=== PATIENT | male | born 1980 | race Caucasian/White ===

== ENCOUNTER 2016-10-12 12:09 | Inpatient (IN) | payer BC, OTHER ==
[~2016-10-12] VITALS: Ht 190.5 cm; Wt 97.5 kg
--- NOTE | 2016-10-12 12:25 | NUR ---
PRE-ASSESSMENT: Pre-Assessment done at intake office, client is A/O x4, he presents with flat affect, anxious mood. Enlarged pupils noted. T 98, RR 18, BP 129/72, HR 87, spO2 @ 98% on RA, Pain generalized body aches 0/10. He is fully ambulatory. He denies any allergies; he denies any withdrawal-induced seizure. PMH: Depression, Asthma and tobacco use. Medications taken at home Wellbutrin 150 daily PO Albuterol 1-2 puffs PRN Q4hr for asthma, last time used yesterday Client substance use is as follow, he first started using heroin about 11 years ago, for the last 4 weeks he has been using 0.5 to 0.75 gram smoked daily, last time used 10/11/16 @ 1900. Methamphetamine 0.33 gm smoked 2-3 times a week, last used 10/11/16 @ 1900. He smokes marijuana occasionally "A couple of hits." Client verbalized understanding of Vitals protocol Q4H, urine drug screen and blood lab work.
[2016-10-12 13:05] VITALS: BP 118/70
--- NOTE | 2016-10-12 13:05 | NUR ---
Admissions Note 36 year old male admitted to [facility] for withdrawal from heroin. Client reports PMH of Asthma, Depression, Chronic tobacco use. Client denies any hx of withdrawal-induced seizure. Client is oriented to unit, educated about protocols and how to work TV and call light in his room. Weight: 215 pounds. Height: 6'3" COWS: 4 Client presents with anxious mood, flat affect, clammy skin, well healed small track arredondo on bilateral arms. well healed scars on Bilateral randall, scabs x 2 on L randall, client states "I was picking at it." Bilateral lung clear of wheezing on auscultation, abdomen soft, non-tender, no edema noted. Clients voice is soft, he avoids eye contact. Client has NKA. Kosher diet ordered. Full code status ordered. LBM was 10/12/16, small/brown/formed. Client denies a PCP. He gives verbal consent for PNA vaccine. He gives verbal consent for HIV. Client states that he was statying at a sober living, but after today he doesn't know where he will be living. Client substance use is as follow, he first started using heroin about 11 years ago, for the last 4 weeks he has been using 0.5 to 0.75 gram smoked daily, last time used 10/11/16 @ 1900. Methamphetamine 0.33 gm smoked 2-3 times a week, last used 10/11/16 @ 1900. He smokes marijuana occasionally "A couple of hits." He reports hx of prior treatment, maybe 7 or 8, he can not remember at this time, last being at [facility] 10 months ago, after completing it, he was at a sober living. Client's longest period of sobriety is of eight months form 02/2016-09/2016 Dr Vivar assessed client. Urine was collected upon admission. All safety measures instituted. [place] precaution. Call light within reach. Will continue to monitor.
[2016-10-12 13:19] LABS: *AMPHETAMINE, URINE POSITIVE (NEGATIVE); *BARBITURATE, URINE NEGATIVE (NEGATIVE); *CANNABINOID, URINE NEGATIVE (NEGATIVE); *COCCAINE, URINE NEGATIVE (NEGATIVE); *OPIATE, URINE POSITIVE (NEGATIVE); *PHENCYCLIDINE SCREEN,URINE NEGATIVE (NEGATIVE)
[2016-10-12] MEDS ORDERED: BECL8.7A6 IH (13:43)
[2016-10-12] MEDS ORDERED: CHOL200016 PO (13:43)
[2016-10-12] MEDS ORDERED: UBID1CAP54 PO (13:43)
[2016-10-12] MEDS ORDERED: [UNRECOGNIZED DRUG - OTHER] (13:43)
[2016-10-12] MEDS ORDERED: BUPR-51 PO (13:43)
[2016-10-12] MEDS ORDERED: OMEG1CAP18 PO (13:43)
[2016-10-12] MEDS ORDERED: TURM1CAP PO (13:43)
[2016-10-12] MEDS ORDERED: THIO100C2 PO (13:43)
[2016-10-12] MEDS ORDERED: MIRALAX 17 GM POWD.PACK PO PRN (14:15)
[2016-10-12] MEDS ORDERED: LOPERAMIDE HCL 2 MG CAPSULE PO PRN ×2 (14:15)
[2016-10-12] MEDS ORDERED: BUPRENORPHINE HCL 2 MG TAB.SUBL SL PRN (14:15)
[2016-10-12] MEDS ORDERED: MAGNESIUM HYDROXIDE 30 ML LIQUID UDC PO PRN (14:15)
[2016-10-12] MEDS ORDERED: MAG HYDROX/AL HYDROX/SIMETH 30 ML LIQUID UDC PO PRN (14:15)
[2016-10-12] MEDS ORDERED: ONDANSETRON ODT 4 MG TAB.RAPDIS SL PRN (14:15)
[2016-10-12] MEDS ORDERED: DICYCLOMINE HCL 20 MG TABLET PO PRN (14:15)
[2016-10-12] MEDS ORDERED: CLONIDINE HCL 0.1 MG TABLET PO PRN (14:15)
[2016-10-12] MEDS ORDERED: ONDANSETRON 4 MG/2 ML VIAL IM PRN (14:15)
[2016-10-12] MEDS ORDERED: ACETAMINOPHEN 325 MG TABLET PO PRN (14:15)
[2016-10-12] MEDS: LIDOCAINE 5% PATCH TD SCH ×2 (14:42→15:10)
[2016-10-12] MEDS: METHOCARBAMOL 750 MG TABLET PO PRN (15:10)
[2016-10-12] MEDS: HYDROXYZINE PAMOATE 25 MG CAPSULE PO PRN (15:10)
--- NOTE | 2016-10-12 15:10 | NUR ---
PRN Clonidine 0.1mg, Vistaril 50mg, Bentyl 20mg, Robaxin 750mg. Client reports irritability, cold/chills, anxiety, abdominal spasms and generalized muscle pain /. Call light within reach. Will continue to monitor.
[2016-10-12 16:00] VITALS: BP 108/48
--- NOTE | 2016-10-12 16:10 | NUR ---
Reassessment PRN Clonidine 0.1mg, Vistaril 50mg, Bentyl 20mg, Robaxin 750mg. Client reports some relief from muscle pain 1/10, but tolerable, he presents less anxious, he denies any muscle spasms at this time. above medications effective. Call light within reach. Will continue to monitor.
[2016-10-12 17:35] VITALS: BP 112/68
--- NOTE | 2016-10-12 17:35 | NUR ---
PRN Subutex 4mg Client reports chills, cold, mild body aches /, client noted with goosebump, yawning, enlarged pupils, moist skin, COWS 12. PRN Subutex 4mg SL administered. Call light within reach. Will continue to monitor.,
--- NOTE | 2016-10-12 17:44 | NUR ---
MRSA swab collected, client tolerated well.
--- NOTE | 2016-10-12 18:05 | NUR ---
Reassessment PRN Subutex 4mg Client is in bed, he states feeling a little bit better. COWS 7
--- NOTE | 2016-10-12 18:41 | NUR ---
END OF SHIFT Will endorse client to incoming nurse, client c/ Subutex 4mg PRN Q4H for COWS => than 12. PRN Subutex 4mg administered SL COWS 12 after 1/2 hr COWS 7 @ 1805. Client presents with anxious mood, flat affect and fatigue. PRN Clonidine 0.1mg, Vistaril 50mg, Bentyl 20mg, Robaxin 750mg. for irritability, cold/chills, anxiety, abdominal spasms and generalized muscle pain /10, noted effective. Client was not compliant with group therapy. Adequate intake 1400mL, void x 2, LBM 10/12/16. Client is fully ambulatory. Call light within reach. Safety measures rendered and all needs me
--- NOTE | 2016-10-12 19:08 | NUR ---
Start of shift note Received report from day shift nurse. Pt is presenting to [facility] for Opiate/Methamphetamine/Marijuana dependence. Pt has NKA, is on Full Code status, and on Regular diet. Pt is on Fall precautions. Pt has HX of Depression, Asthma, and Right Clavicular FX. Pt is due to start Subutex taper tomorrow. No s/s of distress noted at this time. Respirations even and unlabored. Will continue to monitor. Addendum: 10/12/16 at 1935 by BASIA ROSS LVN Pt is a 36 yo male, A+Ox4.
[2016-10-12 20:16] VITALS: BP 108/54
[2016-10-12] MEDS: GABAPENTIN 300 MG CAPSULE PO SCH (21:10)
[2016-10-13 00:11] VITALS: BP 110/78
[2016-10-13 04:13] VITALS: BP 116/80
--- NOTE | 2016-10-13 06:53 | NUR ---
End of shift note Pt is a 36 yo male, A+Ox4, presenting to [facility] for Opiate/Methamphetamine/Marijuana dependence. Pt has NKA, is on Full Code status, and on Regular diet. Pt is on Fall precautions. Pt has HX of Depression, Asthma, and Right Clavicular FX. Pt is due to start Subutex taper tomorrow. Pt slept for a total of 9 HRS. Last COWS: 2 @0400. No s/s of distress noted at this time. Respirations even and unlabored. Will endorse to day shift nurse.
[2016-10-13 08:00] VITALS: BP 100/60
[2016-10-13] MEDS ORDERED: TUBERCULIN,PURIF.PROT.DERIV. 5 TU/0.1 ML TEST ID ONE (09:00)
[2016-10-13] MEDS: MULTIVITAMINS,THERAPEUTIC TABLET PO SCH (09:00)
[2016-10-13] MEDS: GABAPENTIN 300 MG CAPSULE PO SCH ×2 (09:00→21:14)
[2016-10-13] MEDS: BUPRENORPHINE HCL 2 MG TAB.SUBL SL SCH ×3 (09:00→21:14)
[2016-10-13] MEDS: LIDOCAINE 5% PATCH TD SCH ×2 (09:00→14:49)
[2016-10-13 12:00] VITALS: BP 100/61
[2016-10-13] MEDS: QVAR INH SCH (13:00)
[2016-10-13] MEDS ORDERED: ALBUTEROL SULFATE 2.5 MG/3 ML NEBU NEB PRN (13:15)
[2016-10-13 16:00] VITALS: BP 124/86
--- NOTE | 2016-10-13 16:37 | NUR ---
Therapist prompted client to attend group therapy. Client stated he was not interested at this time, but would consider going later.
--- NOTE | 2016-10-13 19:16 | NUR ---
END OF SHIFT: PT ISOLATED IN ROOM MOST OF SHIFT. LAST COWS 12. SUBUTEX TAPER IN PROGRESS. HE STATES THE SUBUTEX IS EFFECTIVE. HE C/O CHILLS ,SWEATS, BODY ACHES ACHES AND RESTLESSNESS.CXR ORDERED PT WANTED TO SLEEP IN AND REFUSED PPD. WILL PASS SHIFT REPORT TO ONCOMING NIGHT NURSE. NO PRNS GIVE ON SHIFT.
[2016-10-13] MEDS: METHOCARBAMOL 750 MG TABLET PO PRN (19:54)
[2016-10-13] MEDS: IBUPROFEN 600 MG TABLET PO PRN (19:54)
--- NOTE | 2016-10-13 19:54 | NUR ---
PRN MEDICATIONS: Prn Motrin 600 mg p.o. and Prn Robaxin 750 mg p.o. given per request for c/o right neck, right shoulder, right jaw aches and pain, 8/10 pain scale.
[2016-10-13 20:00] VITALS: BP 113/59
--- NOTE | 2016-10-13 20:00 | NUR ---
2000 Patient received awake, alert and lying quietly on his bed, watching television. Patient responds to nurse's greeting and introduction with no eye contact and, " Hi, I'm okay". Patient is oriented to person, place, day, date, time and his personal situation. Patient's color is tannish-pink and his skin is warm, dry and intact. Patient's overall appearance is slightly disheveled. Patient's lung sounds are clear bilaterally, though slightly diminished in lower lobes, and active bowel sounds are noted X 4 abdominal Quads, per auscultation. Patient states that he is eating his regular diet trays "okay" and he is taking fluids ad kishor with no gastric issues noted so far. Patient states further that he has not attended any [facility] yet since admission. Patient was admitted on 10/12/16 for: Heroin, Methamphetamine and Marijuana withdrawal and a 5-Day Subutex medication taper has been ordered for him. Patient offers no requests or c/o anything at this time. Patient is cooperative and verbally appropriate when interacting with nurse, however eye contact is rare and affect is flat. Patient really only speaks in monosyllables when he is spoken to first. Bed is locked and in lowest position, bed rails are up X 1 and call light within patient's easy reach.
[2016-10-13] MEDS: ALBUTEROL SULFATE 2.5 MG/ 0.5 ML NEBU NEB PRN (20:17)
--- NOTE | 2016-10-13 20:54 | NUR ---
REASSESSMENT PRN MEDICATION: Patient states that prn medications given at 1953, were effective, 2/10 pain scale now.
[2016-10-13] MEDS: diphenhydrAMINE 50 MG CAPSULE PO PRN (22:49)
--- NOTE | 2016-10-13 22:49 | NUR ---
PRN MEDICATION: Prn Benadryl 50 mg p.o. given per request for sleep medication.
[2016-10-13] MEDS: HYDROXYZINE PAMOATE 25 MG CAPSULE PO PRN (22:50)
--- NOTE | 2016-10-13 22:50 | NUR ---
PRN MEDICATIONS: Prn Vistaril 50 mg p.o. given per request for c/o anxiety and Prn Tylenol 650 mg p.o. given per request for right side of head and neck discomfort, 4/10 pain scale.
--- NOTE | 2016-10-13 23:50 | NUR ---
REASSESSMENT PRN MEDICATIONS: Patient is sleeping soundly with eyes closed and respirations quiet, even, unlabored at 12.
[2016-10-14 04:00] VITALS: BP 108/61
--- NOTE | 2016-10-14 04:00 | NUR ---
V/S: 97.6-56-16 108/61, O2 Sat 96%, COWS 2, CIWA 1
--- NOTE | 2016-10-14 06:30 | NUR ---
0630 Patient slept a total of 7 hours and he had 2 voids and no stools. Total intake was 1,419 ml p.o. Prn medications given noted separately per floor protocol. V/SS afebrile, COWS 2 and CIWA 1 at 0400. Patient is presently sleeping comfortably with eyes closed and respirations quiet, even, unlabored at 12.
[2016-10-14 08:00] VITALS: BP 100/60
--- NOTE | 2016-10-14 08:05 | NUR ---
START OF SHIFT: RECEIVED PT A/O X 4. HE APPEARS APATHETIC. HE STATES HE SLEPT WELL. HE STATES HE HAS MILD BODY ACHES AND RESTLESSNESS. COWS 4. SUBUTEX TAPER IN PROGRESS. ENCOURAGED GROUP ATTENDANCE AND PEER INTERACTION TODAY. WILL CONTINUE TO MONITOR AND OFFER SUPPORT.
[2016-10-14] MEDS: QVAR INH SCH (09:00)
[2016-10-14] MEDS ORDERED: BUPRENORPHINE HCL 2 MG TAB.SUBL SL SCH (09:00)
[2016-10-14] MEDS: GABAPENTIN 300 MG CAPSULE PO SCH ×2 (09:44→20:57)
[2016-10-14] MEDS: buPROPion XL 150 MG TAB.SR.24H PO SCH (09:44)
[2016-10-14] MEDS: MULTIVITAMINS,THERAPEUTIC TABLET PO SCH (09:45)
[2016-10-14] MEDS: LIDOCAINE 5% PATCH TD SCH (09:45)
--- NOTE | 2016-10-14 10:15 | NUR ---
PT STATES HE OPENED DOOR TO PATIO AND BANGED HIS HEAD. SUPERFICIAL ABRASION NOTED. CLEANSED WITH WATER AND PATTED DRY. PT DENIES PAIN AND/OR DISCOMFORT.
[2016-10-14] MEDS: IBUPROFEN 600 MG TABLET PO PRN ×2 (11:40→20:58)
[2016-10-14] MEDS: METHOCARBAMOL 750 MG TABLET PO PRN ×2 (11:40→20:58)
--- NOTE | 2016-10-14 11:45 | NUR ---
PRN MOTRIN AND ROBAXIN GIVEN FOR R CLAVICLE AND R FACE PAIN 6/10 ON PAIN SCALE. WILL MONITOR EFFECTIVENESS OF MEDICATION.
[2016-10-14 12:00] VITALS: BP 118/70
--- NOTE | 2016-10-14 14:52 | NUR ---
Therapist prompted client about group times. Client reported he will try to attend the afternoon group.
[2016-10-14 16:00] VITALS: BP 122/83
[2016-10-14] MEDS: NEOMY/BACITRAC/POLYMI OINT 28.35 GM TUBE TOP SCH (16:28)
[2016-10-14] MEDS: BUPRENORPHINE HCL 2 MG TAB.SUBL SL SCH ×2 (16:28→20:58)
--- NOTE | 2016-10-14 19:23 | NUR ---
END OF SHIFT: PT ISOLATED IN ROOM MOST OF SHIFT. LAST COWS 2. SUBUTEX TAPER IN PROGRESS. PRN JUJU ROBAXIN GIVEN AND EFFECTIVE FOR CLAVICLE PAIN . HE DID NOT ATTEND GROUPS BUT INTERACTS WITH [facility]. WILL PASS SHIFT REPORT TO [facility] NIGHT NURSE. Addendum: 10/14/16 at 1928 by KEITH PETTY RN CORRECTION LAST COWS 3
[2016-10-14 20:00] VITALS: BP 117/65
--- NOTE | 2016-10-14 20:00 | NUR ---
1999 Patient received resting comfortably with eyes closed and respirations quiet, even at 14. Patient easily aroused for nurse assess and vital signs. Upon seeing nurse, patient closes back his eyes and states flatly, " Oh, hi". Patient id oriented to person, place, day, date and his personal situation. Easily reoriented to time. Patient's color is pink and his skin is warm, very slightly moist and intact. Patient states that he did attend [facility] groups today and he has been taking his regular diet trays "okay" and taking fluids ad kishor with no gastric issues so far. Vital signs are: 98.1-74-16 117/65, O2 sat 98%, COWS 2. Patient offers no requests or complaints of anything at this time. Patient was admitted on 10/12/16 for: Heroin, Meth and Marijuana withdrawal and he is currently on a 5-Day Subutex medication taper, which he is apparently tolerating well so far. Bed si locked and in lowest position, bde rails are up X 2 and call light within patient's easy reach.
--- NOTE | 2016-10-14 20:58 | NUR ---
PRN MEDICATIONS: Prn Motrin 600 mg p.o. and Prn Robaxin 750 mg p.o. given per request for c/o right neck, shoulder and clavicular pain, 6-7/10 pain scale.
--- NOTE | 2016-10-14 21:58 | NUR ---
REASSESSMENT PRN MEDICATIONS: Patient downstairs on hospital patio for smoke break. Unable to assess patient at this time.
[2016-10-14] MEDS: diphenhydrAMINE 50 MG CAPSULE PO PRN (23:35)
[2016-10-14] MEDS: HYDROXYZINE PAMOATE 25 MG CAPSULE PO PRN (23:35)
--- NOTE | 2016-10-14 23:35 | NUR ---
PRN MEDICATIONS: Prn Benadryl 50 mg p.o. given per request for sleep medication and Prn Vistaril 50 mg p.o. given per request for c/o anxiety.
--- NOTE | 2016-10-15 | NUR ---
Patient refused to be awakened for V/S to be taken at this time.
--- NOTE | 2016-10-15 00:35 | NUR ---
0035 Patient is sleeping comfortably in supine position with eyes closed and respirations quiet, even, unlabored at 12.
--- NOTE | 2016-10-15 04:00 | NUR ---
Patient refused to be awakened for V/S to be done at this time.
--- NOTE | 2016-10-15 06:30 | NUR ---
0630 Patient slept a total of 5 hours and he had 3 voids and no stools. Total intake was 1,750 ml p.o. Prn medications given noted separately per floor protocol. V/SS afebrile, last COWS 2 at 1999. Patient is cooperative with nurse overall, however his mood/affect is somewhat isolative and flat. Patient basically speaks on when he is spoke to first, and even then he speaks very few words. Patient is presently sleeping comfortably with eyes closed and respirations quiet, even, unlabored at 12.
--- NOTE | 2016-10-15 07:58 | NUR ---
START OF SHIFT NOTE Received report from night, 36 year old male admitted for Opiate/Methamphetamine/Marijuana dependence. Patient reported past medical history of Depression, Asthma, and Right Clavicular FX. Patient cont with 5-day Subutex taper and tolerating well. Pt received PRN Motrin, Robaxin, Benadryl, Vistaril effective per night nurse, Last COWS-2, slept for 5 hours. Upon assessment pt is alert awake oriented x4 in stable condition. Educated regarding plan of care for the day and medication regimen with good verbal understanding. Safety measures in place. Will cont to monitor.
[2016-10-15 08:00] VITALS: BP 110/62
[2016-10-15] MEDS: GABAPENTIN 300 MG CAPSULE PO SCH ×2 (08:42→20:34)
[2016-10-15] MEDS: BUPRENORPHINE HCL 2 MG TAB.SUBL SL SCH ×3 (08:42→20:35)
[2016-10-15] MEDS: LIDOCAINE 5% PATCH TD SCH (08:42)
[2016-10-15] MEDS: NEOMY/BACITRAC/POLYMI OINT 28.35 GM TUBE TOP SCH ×2 (08:42→16:20)
[2016-10-15] MEDS: buPROPion XL 150 MG TAB.SR.24H PO SCH (08:42)
[2016-10-15] MEDS: MULTIVITAMINS,THERAPEUTIC TABLET PO SCH (08:42)
[2016-10-15] MEDS: QVAR INH SCH (08:45)
[2016-10-15] MEDS: ALBUTEROL SULFATE 2.5 MG/ 0.5 ML NEBU NEB PRN (09:04)
[2016-10-15 12:00] VITALS: BP 108/64
[2016-10-15] MEDS: IBUPROFEN 600 MG TABLET PO PRN ×2 (13:15→21:11)
[2016-10-15] MEDS: METHOCARBAMOL 750 MG TABLET PO PRN ×2 (13:15→21:11)
--- NOTE | 2016-10-15 13:15 | NUR ---
PRN MOTRIN/ROBAXIN Pt c/o of muscle cramps and body aches 07/16. PRN Motrin 600mg,Robaxin 750mg given as ordered. Will cont to monitor and reassess.
--- NOTE | 2016-10-15 14:15 | NUR ---
REASSESSMENT Upon reassessment pt reported medication effective, pain level decreased 1/10.
[2016-10-15 16:00] VITALS: BP 122/69
--- NOTE | 2016-10-15 18:55 | NUR ---
START OF SHIFT NOTE: Patient endorsed by day shift nurse. Report received. Patient is a 36 year old male admitted to [facility] on 10/12/2016 under the care of Doctor Ghazala, Montana Rojas MD for Opioid and Methamphetamine dependence, placed on 5 Day Subutex Taper since 10/12/2016. Patient tolerated well without ASE. Patient remains compliant with treatment, medications, and diet regime. Patient reports NKA. Patient placed on Full Code, Regular Diet, Fall and Seizures Precautions. Patients denies Seizures Hx r/t withdrawal from substances. COWS 5. Patient presented with anxiety, agitation, nervousness, diaphoresis, restless legs, very mild headache, body aches, insomnia and fatigue. Patient denies SI/HI. Patient reports the following substances use: Heroin : "smoke 0.5-0.75 gram every day since September,: 4 weeks". Last use 0.5 gram on 10/11/16 at 1900". Methamphetamine: "0.2 or 0.33 grams twice a week since September,". Last use "0.2 grams on 10/11/16 at 1900". Patient reports treatment history: "[facility]" : x7 or x 8". Past Medical History: Anxiety, Depression, Right Clavicle Fracture, Substance Abuse. Upon endorsement, patient is in his room AOx4, ambulatory with steady gate, stable, speech is soft and clear. VSWNL. Respirations unlabored and even. Lungs Sounds are clear bilaterally. Bowel Sounds active in all x4 quadrants. Last Bowel Movement was "10/15/16 at 1100". Skin is warm and dry to touch. Patient has bilateral upper extremities not opened scabs. Encouraged fluids as tolerated. Encouraged to attend groups activities. Patient verbalized understanding. Safety measures on place. Call light within reach, bed in lowest position and locked, padded rails up bilaterally rails up bilaterally. Will continue to monitor closely.
--- NOTE | 2016-10-15 18:55 | NUR ---
END OF SHIFT NOTE Endorsed pt to night nurse. Pt is alert awake oriented x4, 36 year old male admitted for Opiate/Methamphetamine/Marijuana dependence. Patient reported past medical history of Depression, Asthma, and Right Clavicular FX. Patient cont with 5-day Subutex taper and tolerating well. Pt remains compliant with the treatment plan. Patient encouraged adequate PO fluid intake as tolerated. During shift patient presented with body aches, muscle spasms, Pt given PRN Motrin, Robaxin effective. Last COWS-2. Patient encouraged to attend group therapies/sessions to learn new coping skills to prevent relapse, patient denies SI/HI. Safety measures in place. Call light kept within reach.
[2016-10-15 20:00] VITALS: BP 120/63
--- NOTE | 2016-10-15 21:11 | NUR ---
PRN MOTRIN PO AND PRN ROBAXIN PO ADMINISTRATION Patient c/o Right sided neck pain "7" by 0-10 adult pain scale and muscle spasm. Patient was assessed. PRN Motrin PO and PRN Robaxin PO was discussed. Patient 's educated for actions, adverse reactions and side effects of Motrin and Robaxin. Patient returned back his knowledge by verbalizing understanding. PRN Motrin 600 mg 1 tab PO and PRN Robaxin 750 mg 1 tab PO administrated as ordered with full glass of water. Patient tolerated well. Will reassessing in one hour. All needs met. Safety measures on the place: Call light within reach, bed is low position, and locked, side rails up x2. Will continue to monitor closely.
[2016-10-15] MEDS: HYDROXYZINE PAMOATE 25 MG CAPSULE PO PRN (23:40)
[2016-10-15] MEDS: diphenhydrAMINE 50 MG CAPSULE PO PRN (23:41)
--- NOTE | 2016-10-15 23:41 | NUR ---
PRN VISTARIL PO AND PRN BENADRYL PO ADMINISTRATION Patient c/o increased anxiety and insomnia. Patient was assessed. PRN Vistaril PO and PRN Benadryl PO was discussed. Patient educated for actions, adverse reactions and side effects of Vistaril and Benadryl. Patient returned back his knowledge by verbalizing understanding. PRN Vistaril 50mg 2 caps.PO and PRN Benadryl 50 mg 1 caps. PO administrated as ordered with full glass of water. Patient tolerated well. Will reassessing in one hour. All needs met. Safety measures on the place: Call light within reach, bed is low position, and locked, side rails up x2. Will continue to monitor closely.
[2016-10-16] VITALS: BP 116/67
--- NOTE | 2016-10-16 00:41 | NUR ---
RE-ASSESSMENT Patient is sleeping. RR 15. Respirations are even and unlabored. PRN Vistaril PO and PRN Benadryl PO were effective. All needs met. Safety measures on the place: Call light within reach, bed is low position, and locked, side rails up x2. Will continue to monitor closely.
[2016-10-16 04:00] VITALS: BP 110/59
--- NOTE | 2016-10-16 06:57 | NUR ---
END OF SHIFT NOTE: Patient endorsed to day shift nurse in stable condition. Report given. Patient is a 36 year old male admitted to [facility] on 10/12/2016 under the care of Doctor Montana Vivar MD for Opioid and Methamphetamine dependence, placed on 5 Day Subutex Taper since 10/12/2016. Patient tolerated well without ASE. Patient remains compliant with treatment, medications, and diet regime. Patient reports NKA. Patient placed on Full Code, Regular Diet, Fall and Seizures Precautions. Patients denies Seizures Hx r/t withdrawal from substances. Past Medical History: Anxiety, Depression, Right Clavicle Fracture, Substance Abuse: Heroin and Methamphetamine. Last COWS 4 at 0400. 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 Patient denies SI/HI. VS at 0400: T: 98'2; BP: 91/68; HR: 67; RR: 17; O2 SAT: 99%, pain level:"0/10". Respirations unlabored and even. Patient denies SOB and chest pain. Skin is warm and dry to touch. Patient has bilateral upper extremities scabs,not opened. Encouraged fluids as tolerated. PRN Motrin PO, PRN Robaxin PO, PRN Vistaril PO, and PRN Benadryl PO were effective. Patient slept 4 hours, intake 500 ml, voided x2. All needs met. Safety measures on place. Call light within reach, bed in lowest position and locked, padded rails up bilaterally rails up bilaterally.
--- NOTE | 2016-10-16 07:47 | NUR ---
START OF SHIFT NOTE Received report from night, 36 year old male admitted for Opiate/Methamphetamine/Marijuana dependence. Patient reported past medical history of Depression, Asthma, and Right Clavicular FX. Patient cont with 5-day Subutex taper and tolerating well. Pt received PRN Motrin, Robaxin, Benadryl, Vistaril effective per night nurse, Last COWS-4, slept for 4 hours. Upon assessment pt is alert awake oriented x4 in stable condition. Educated regarding plan of care for the day and medication regimen with good verbal understanding. Safety measures in place. Will cont to monitor.
[2016-10-16 08:00] VITALS: BP 100/64
[2016-10-16] MEDS: LIDOCAINE 5% PATCH TD SCH (08:57)
[2016-10-16] MEDS: MULTIVITAMINS,THERAPEUTIC TABLET PO SCH (08:57)
[2016-10-16] MEDS: NEOMY/BACITRAC/POLYMI OINT 28.35 GM TUBE TOP SCH ×2 (08:57→16:20)
[2016-10-16] MEDS: GABAPENTIN 300 MG CAPSULE PO SCH ×2 (08:57→21:08)
[2016-10-16] MEDS: buPROPion XL 150 MG TAB.SR.24H PO SCH (08:57)
[2016-10-16] MEDS: QVAR INH SCH (08:58)
[2016-10-16] MEDS ORDERED: BUPRENORPHINE HCL 2 MG TAB.SUBL SL SCH (09:00)
[2016-10-16] MEDS: IBUPROFEN 600 MG TABLET PO PRN ×2 (11:08→21:12)
[2016-10-16] MEDS: METHOCARBAMOL 750 MG TABLET PO PRN ×2 (11:08→21:12)
--- NOTE | 2016-10-16 11:08 | NUR ---
PRN MOTRIN/ROBAXIN Pt c/o of muscle cramps and body aches 5/10. PRN Motrin 600mg,Robaxin 750mg given as ordered. Will cont to monitor and reassess.
[2016-10-16 12:00] VITALS: BP 123/68
--- NOTE | 2016-10-16 12:08 | NUR ---
REASSESSMENT Upon reassessment pt reported medication effective, pain level decreased 1/10.
[2016-10-16] MEDS ORDERED: METH-406 PO (12:37)
[2016-10-16] MEDS ORDERED: GABA-534 PO (12:37)
[2016-10-16] MEDS ORDERED: IBUP-1955 PO (12:37)
[2016-10-16] MEDS ORDERED: DIPH50CA37 PO (12:37)
[2016-10-16] MEDS ORDERED: DICY20TA28 PO (12:37)
[2016-10-16] MEDS ORDERED: HYDR-3895 PO (12:37)
[2016-10-16 16:00] VITALS: BP 133/75
[2016-10-16] MEDS ORDERED: PNEUMOCOCCAL 23-VAL P-SAC VAC 0.5 ML VIAL IM ONE (17:00)
[2016-10-16] MEDS: ALBUTEROL SULFATE 2.5 MG/ 0.5 ML NEBU NEB PRN (17:04)
[2016-10-16 17:56] LABS: *AMPHETAMINE, URINE NEGATIVE (NEGATIVE); *BARBITURATE, URINE NEGATIVE (NEGATIVE); *CANNABINOID, URINE NEGATIVE (NEGATIVE); *COCCAINE, URINE NEGATIVE (NEGATIVE); *OPIATE, URINE NEGATIVE (NEGATIVE); *PHENCYCLIDINE SCREEN,URINE NEGATIVE (NEGATIVE)
--- NOTE | 2016-10-16 18:45 | NUR ---
START OF SHIFT NOTE: Patient endorsed by day shift nurse. Report received. Patient is a 36 year old male admitted to [facility] on 10/12/2016 for Opioid and Methamphetamine dependence, completed 5 Day Subutex Taper, which tolerated well without ASE. Patient remains compliant with treatment, medications, and diet regime. Patient reports NKA. Patient's ordered Full Code, Regular Diet, Fall and Seizures Precautions. Patients denies Seizures Hx r/t withdrawal from substances. Past Medical History: Anxiety, Depression, Right Clavicle Fracture, Substance Abuse: Heroin and Methamphetamine. Upon endorsement patient is in the room alert and oriented x4, speech is clear and soft. COWS 1. Patient presented with mild anxiety, Patient denies SI/HI. VSWNL. Respirations unlabored and even. Patient denies SOB and chest pain. Lungs Sounds are clear thoroughly. Bowel Sounds active in all four quadrants. Skin is warm and dry to touch. Patient has bilateral upper extremities dry, not opened scabs. Encouraged fluids as tolerated. Patient attended groups activities. Patient scheduled discharging tomorrow by Doctor Montana Vivar MD's order. UDS labs results placed in chart. All needs met. Safety measures on place. Call light within reach, bed in lowest position and locked, padded rails up bilaterally rails up bilaterally. Will continue to monitor closely.
--- NOTE | 2016-10-16 18:45 | NUR ---
END OF SHIFT NOTE Endorsed pt to night nurse. Pt is alert awake oriented x4, 36 year old male admitted for Opiate/Methamphetamine/Marijuana dependence. Patient reported past medical history of Depression, Asthma, and Right Clavicular FX. Patient cont with 5-day Subutex taper and tolerating well. Pt remains compliant with the treatment plan. Patient encouraged adequate PO fluid intake as tolerated. During shift patient presented with body aches, muscle spasms, Pt given PRN Motrin, Robaxin effective. Last COWS-1. Patient encouraged to attend group therapies/sessions to learn new coping skills to prevent relapse, patient denies SI/HI. Pt scheduled for discharge in AM urine drug screen completed and placed in the chart. Safety measures in place. Call light kept within reach.
[2016-10-16 20:00] VITALS: BP 125/79
--- NOTE | 2016-10-16 21:12 | NUR ---
PRN MOTRIN PO AND PRN ROBAXIN PO ADMINISTRATION Patient c/o Right sided neck pain "8" by 0-10 adult pain scale and muscle spasm. Patient was assessed. PRN Motrin PO and PRN Robaxin PO was discussed. Patient 's educated for actions, adverse reactions and side effects of Motrin and Robaxin. Patient returned back his knowledge by verbalizing understanding. PRN Motrin 600 mg 1 tab PO and PRN Robaxin 750 mg 1 tab PO administrated as ordered with full glass of water. Patient tolerated well. Will reassessing in one hour. All needs met. Safety measures on the place: Call light within reach, bed is low position, and locked, side rails up x2. Will continue to monitor closely.
--- NOTE | 2016-10-16 22:12 | NUR ---
RE-ASSESSMENT Patient is sleeping. RR 14. Respirations are even and unlabored. PRN Motrin PO and PRN Robaxin PO were effective. All needs met. Safety measures on the place: Call light within reach, bed is low position, and locked, side rails up x2. Will continue to monitor closely.
[2016-10-16] MEDS: HYDROXYZINE PAMOATE 25 MG CAPSULE PO PRN (23:36)
[2016-10-16] MEDS: diphenhydrAMINE 50 MG CAPSULE PO PRN (23:36)
--- NOTE | 2016-10-16 23:36 | NUR ---
PRN VISTARIL PO AND PRN BENADRYL PO ADMINISTRATION Patient c/o increased anxiety and insomnia. Patient was assessed. PRN Vistaril PO and PRN Benadryl PO was discussed. Patient educated for actions, adverse reactions and side effects of Vistaril and Benadryl. Patient returned back his knowledge by verbalizing understanding. PRN Vistaril 50mg 2 caps PO and PRN Benadryl 50 mg 1 caps PO administrated as ordered with full glass of water. Patient tolerated well. Will reassessing in one hour. All needs met. Safety measures on the place: Call light within reach, bed is low position, and locked, side rails up x2. Will continue to monitor closely.
[2016-10-17] VITALS: BP 123/71
--- NOTE | 2016-10-17 00:36 | NUR ---
RE-ASSESSMENT Patient is sleeping. RR 16. Respirations are even and unlabored. PRN Vistaril PO and PRN Benadryl PO were effective. All needs met. Safety measures on the place: Call light within reach, bed is low position, and locked, side rails up x2. Will continue to monitor closely.
[2016-10-17 04:00] VITALS: BP 114/54
--- NOTE | 2016-10-17 06:59 | NUR ---
END OF SHIFT NOTE: Patient endorsed to day shift nurse in stable condition. Report given. Patient is a 36 year old male admitted to [facility] on 10/12/2016 under the care of Montana Carlisle MD for Opioid and Methamphetamine dependence, completed 5 Day Subutex Taper without ASE. Patient tolerated well. Patient remains compliant with treatment, medications, and diet regime. Patient reports NKA. Patient placed on Full Code, Regular Diet, Fall and Seizures Precautions. Patients denies Seizures Hx r/t withdrawal from substances. Past Medical History: Anxiety, Depression, Right Clavicle Fracture, Substance Abuse: Heroin and Methamphetamine. Last COWS 2 at 0400. Last steward/stewardess room patient presented with anxiety, agitation, nervousness, body aches, insomnia and fatigue. Patient denies SI/HI. VS at 0400: T: 97.7; BP: 114/.54; HR: 66; RR: 16; O2 SAT: 96%, pain level of the back:"3/10". Respirations unlabored and even. Patient denies SOB and chest pain. Skin is warm and dry to touch. Patient has bilateral upper extremities scabs, not opened. Encouraged fluids as tolerated. PRN Motrin PO, PRN Robaxin PO, PRN Vistaril PO, and PRN Benadryl PO were effective. Patient slept 3 hours 45 minutes, intake 3,040 ml, voided x6, stool x3. Patient scheduled discharging today, on 10/17/2016 per Doctor Montana Vivar MD's order. UDS labs results placed in chart. All needs met. Safety measures on place. Call light within reach, bed in lowest position and locked, padded rails up bilaterally rails up bilaterally.
--- NOTE | 2016-10-17 07:30 | NUR ---
START OF SHIFT Received report from maintenance supervisor 2nd shift nurse. 36 year old male patient admitted admitted on 10/12/16 for opiate and methamphetamine dependence. Pt is A/O x4. Pt has completed ordered taper and is medically cleared for discharge. Hx of asthma and depression. No SOB noted. Pt V/S remain WNL. PRN Motrin, robaxin, vistaril and benadryl administered and effective. Most recent COWS are 2. Pt slept for 5 hours. Pt remains safe, will continue to monitor.
[2016-10-17 08:05] VITALS: BP 115/73
[2016-10-17] MEDS: buPROPion XL 150 MG TAB.SR.24H PO SCH (08:10)
[2016-10-17] MEDS: QVAR INH SCH (08:10)
[2016-10-17] MEDS: IBUPROFEN 600 MG TABLET PO PRN (08:10)
[2016-10-17] MEDS: MULTIVITAMINS,THERAPEUTIC TABLET PO SCH (08:10)
[2016-10-17] MEDS: LIDOCAINE 5% PATCH TD SCH (08:10)
[2016-10-17] MEDS: GABAPENTIN 300 MG CAPSULE PO SCH (08:10)
--- NOTE | 2016-10-17 08:10 | NUR ---
PRN MOTRIN Pt c/o /10 headache. PRN Motrin administered as ordered, will reassess.
[2016-10-17] MEDS: NEOMY/BACITRAC/POLYMI OINT 28.35 GM TUBE TOP SCH (08:11)
--- NOTE | 2016-10-17 09:10 | NUR ---
REASSESSMENT Pt states Motrin was effective. Denies pain at this time.
--- NOTE | 2016-10-17 09:25 | NUR ---
D/C NOTE Pt is A/O x4. V/S remain WNL. Pt denies SI/HI or hallucinations. Pt shows no s/s of acute withdrawal at this time, and is stable. MD has medically cleared pt for d/c . Education on Hepatitis C, smoking cessation and medication side effects provided. Pt verbalizes understanding. All pt belongings are in belonging bag, including prescriptions, pt did not have any home medications. Pt is being accompanied by MAINFRAME PROGRAMMER at this time to be transported to rehab. All needs met.
== END 2016-10-17 09:25 | disposition other institution (70) | DRG 895 ==
LOC: SRC 12:09
PROVIDERS: ADMIT Internal Medicine; ATTEND Internal Medicine
PROC: HZ2ZZZZ Detoxification Services for Substance Abuse Treatment (ICD-10-PCS; principal; 2016-10-12)
PROC: HZ31ZZZ Individual Counseling for Substance Abuse Treatment, Behavioral (ICD-10-PCS; 2016-10-13)
PROC: HZ41ZZZ Group Counseling for Substance Abuse Treatment, Behavioral (ICD-10-PCS; 2016-10-16)
DX: F11.23 Opioid dependence with withdrawal (principal); F33.2 Major depressive disorder, recurrent severe without psychotic features; G89.21 Chronic pain due to trauma; S42.001S Fracture of unspecified part of right clavicle, sequela; X58.XXXS Exposure to other specified factors, sequela; F17.210 Nicotine dependence, cigarettes, uncomplicated; J45.20 Mild intermittent asthma, uncomplicated; F15.10 Other stimulant abuse, uncomplicated; G44.309 Post-traumatic headache, unspecified, not intractable; S01.81XA Laceration without foreign body of other part of head, initial encounter; W22.8XXA Striking against or struck by other objects, initial encounter; Y92.238 Other place in hospital as the place of occurrence of the external cause; Z79.899 Other long term (current) drug therapy; F12.90 Cannabis use, unspecified, uncomplicated
CPT/HCPCS: 70030-TC; 71010; 80307; 80324; 80361; 90732; 94640; 94664; Q0163